=== PATIENT | male | born 1965 | race Caucasian/White ===

== ENCOUNTER → 2016-11-11 | Outpatient (CLI) | payer OTHER ==
[~2016-11-11] MED LIST: FOLIC ACID1 MG PO; HYDROCODONE BIT1 T11 PO; IBU800 M1 PO; LIBRIUM25 MG PO; MULTIVITAMIN1 CTB PO; OXYCODONE AND A1 TAB PO; PRILOSEC OTC20 MG PO; TRAMADOL HCL50 MG PO; TYLENOL325 M1 PO; VITAMIN B6500 MG PO
== END | disposition home or self-care (01) ==
LOC: ORTHO 04:03
DX: M79.642 Pain in left hand (principal); S62.307D Unspecified fracture of fifth metacarpal bone, left hand, subsequent encounter for fracture with routine healing; X58.XXXD Exposure to other specified factors, subsequent encounter

== ENCOUNTER 2016-12-05 01:01 | Emergency (ER) | payer OTHER ==
[~2016-12-05] VITALS: Ht 182.8 cm; Wt 90.7 kg
[2016-12-05 01:24] LABS: BILIRUBIN NEGATIVE (NEGATIVE); BLOOD TRACE-INTACT (NEGATIVE); CLARITY CLEAR (CLEAR); COLOR YELLOW (YELLOW); GLUCOSE NEGATIVE (NEGATIVE); KETONE NEGATIVE (NEGATIVE); LEUKO ESTERASE NEGATIVE (NEGATIVE); NITRITE NEGATIVE (NEGATIVE); SPECIFIC GRAVITY <= 1.005 (1.005-1.030); UROBILINOGEN 0.2 E.U./dl (0.2-1.0)
[2016-12-05 01:36] LABS: URINE AMPHETAMINES < 1000 (1000ng/ml); URINE BARBITURATES < 200 (200ng/ml); URINE BENZODIAZEPINES > 200 (200ng/ml); URINE CANNABINOIDS (THC) < 50 (50ng/ml); URINE COCAINE < 300 (300ng/ml); URINE METHADONE < 300 (300ng/ml); URINE OPIATES < 300 (300ng/ml); URINE PHENCYCLIDINE < 25 (25ng/ml)
[2016-12-05 01:40] LABS: RBC 0-2 rbc/hpf (0-2)
[2016-12-05] MEDS ORDERED: NORCO 10-325 T1 EACH PO (02:26)
== END 2016-12-05 03:31 | disposition home or self-care (01) ==
LOC: ED 01:01
PROVIDERS: Emergency Medicine
DX: S22.42XA Multiple fractures of ribs, left side, initial encounter for closed fracture (principal); R51 Headache; F17.200 Nicotine dependence, unspecified, uncomplicated; Z79.899 Other long term (current) drug therapy; W01.0XXA Fall on same level from slipping, tripping and stumbling without subsequent striking against object, initial encounter; Y93.89 Activity, other specified; Y92.89 Other specified places as the place of occurrence of the external cause; Y99.8 Other external cause status

== ENCOUNTER → 2017-02-11 | Outpatient (CLI) | payer OTHER ==
[~2017-02-11] MED LIST changes: +NORCO 10-325 T1 EACH PO
[2017-02-11 11:58] LABS: BASO % 0.3 % (0.0-1.0); BILIRUBIN NEGATIVE (NEGATIVE); BLOOD NEGATIVE (NEGATIVE); CLARITY CLEAR (CLEAR); COLOR YELLOW (YELLOW); EOS # 0.1 10*3/uL (0.0-0.4); EOS % 0.6 % (1.0-4.0); GLUCOSE NEGATIVE (NEGATIVE); HEMATOCRIT 44.9 % (42.0-52.0); HEMOGLOBIN 15.4 g/dl (14.0-18.0); KETONE NEGATIVE (NEGATIVE); LEUKO ESTERASE NEGATIVE (NEGATIVE); LYMPH # 2.4 10*3/uL (1.3-4.4); MEAN CELL VOLUME 97.8 fl (80.0-94.0); MEAN CORPUSCULAR HGB 33.6 pg (27.0-31.0); MEAN CORPUSCULAR HGB CONC 34.3 g/dl (33.0-37.0); MEAN PLATELET VOLUME 10.2 fl (9.6-12.3); MONO # 0.8 10*3/uL (0.1-1.0); MONO % 8.4 % (3.0-9.0); NEUT # 5.7 10*3/uL (2.3-7.9); NEUT % 63.4 % (47.0-73.0); NITRITE NEGATIVE (NEGATIVE); PH 5.5 (5.0-9.0); PLATELET COUNT AUTOMATED 149 10*3/uL (130-400); RED BLOOD COUNT 4.59 10*6/uL (4.50-5.90); RED CELL DISTRI WIDTH 14.6 % (0-14.5); SPECIFIC GRAVITY <= 1.005 (1.005-1.030); UROBILINOGEN 0.2 E.U./dl (0.2-1.0)
[2017-02-11 12:06] LABS: RBC 0-2 rbc/hpf (0-2)
[2017-02-11 12:23] LABS: BUN 5 mg/dl (7-24); CHLORIDE 103 mmol/L (98-107); CREATININE 0.85 mg/dL (0.70-1.30); POTASSIUM 4.6 mmol/L (3.5-5.1); SODIUM 138 mmol/L (136-145)
== END | disposition home or self-care (01) ==
LOC: LAB 09:48
PROVIDERS: Orthopaedic Surgery
DX: Z01.818 Encounter for other preprocedural examination (principal); M72.0 Palmar fascial fibromatosis [Dupuytren]; Z87.891 Personal history of nicotine dependence

== ENCOUNTER → 2017-02-18 | Day surgery (SDC) | payer OTHER ==
[2017-02-11 11:11] VITALS: BP 135/71
[~2017-02-18] VITALS: Ht 182.8 cm; Wt 89.8 kg
[~2017-02-18] MED LIST changes: +OMEPRAZOLE D/R20 MG PO; +Percocet 325 MG1 TAB PO; +VITAMIN B-1100 M1 PO; +VITAMIN B-650 M1 PO
--- NOTE | ~2017-02-18 | O ---
[place], [place] OPERATIVE NOTE NAME: ZACHARY PENALOZA [facility] #: [id number] UNIT #: [id number] ROOM: DOCTOR: SHRUTHI PIERSON DO BIRTHDATE: [birth year] DOS: 02/18/2017 PREOPERATIVE DIAGNOSIS: Left hand Dupuytren's contractures. POSTOPERATIVE DIAGNOSIS: Left hand Dupuytren's contractures of the small, ring, and middle fingers. OPERATIVE PROCEDURE: Left hand and small, ring, and middle fingers release and excision of Dupuytren's contractures. SURGEON: Shruthi Pierson DO. FIRST ASSISTANTS: Mile and Rishi. ANESTHESIA: Jolley, ASSISTANT PROGRAM MANAGER; General with endotracheal intubation. INDICATIONS: The patient is a 51-year-old male who has progressive contractures of the left third, fourth and fifth digits of the hand with inability to extend these digits consistent with Dupuytren's contractures. The risks and benefits of the procedure were explained to the patient preoperatively. Preoperative labs and x-rays were obtained. The patient and I discussed preoperatively that he was a heavy smoker and I encouraged him to decrease his smoking prior to the procedure. He has assured me that he has decreased smoking to 1-2 cigarettes a day. DESCRIPTION OF PROCEDURE: The left hand was marked in the holding area. The patient was brought to the operative suite. He was placed supine on the operative table. A general anesthetic with endotracheal intubation was performed. The patient received an antibiotic preoperatively. Timeout was performed. The left upper extremity was prepped and draped in the usual orthopedic manner. The incision was marked with a modified Aravind incision from the level of the PIP joint of the small and ring finger to the proximal palmar crease. The extremity was exsanguinated. The tourniquet was inflated to 250 mmHg. Using loupe magnification, the incisions were made sharply with a scalpel. The skin flaps were kept at a full thickness and the incisions were progressed down to the flexor tendons' sheaths. Meticulous dissection was performed to protect the neurovascular bundles as the Dupuytren's cords and nodules were released and excised. Each digit was brought out to full extension and then return to full flexion without evidence of limitations. It was noted that the middle finger continued to have a flexion contracture at the PIP and MCP joints. The incision was gently retracted in a radial direction. Again, under loupe magnification, the neurovascular bundles were protected and the remaining cords and nodules were released and excised for the middle finger. The middle finger was brought into full extension and full flexion without limitations. The incisions were copiously irrigated with normal saline. The skin edges were brought together in a lengthened position and the corners were sutured with a 4-0 Prolene. When this was completed, the tourniquet was released. [place], [place] OPERATIVE NOTE NAME: ZACHARY PENALOZA UNIT #: [id number] ROOM: DOCTOR: SHRUTHI PIERSON DO BIRTHDATE: [birth year] Active bleeding was controlled with pressure and electrocautery. Closure was completed with the fingers in full extension. There were noted to remain 2 areas less than 1 cm each in the palmar region, which were left open for granulation. The area was injected with Marcaine 0.25% plain. The incision was covered with Adaptic and Neosporin. A bulky dry sterile dressing was applied with fluffs and cast padding. A volar splint was applied from the mid forearm to the fingertips holding the digits in full extension. The fingertips were noted to be pink and have good capillary refill. The anesthetic was reversed. The patient was extubated and taken to the recovery room in satisfactory condition. Sponge and needle count correct. ESTIMATED BLOOD LOSS: 25 mL. SPECIMENS: Cords and palmar fascia were sent to the lab for further study. DRAINS: None. PACKING: None. COMPLICATIONS: None. FINDINGS: Dupuytren's contractures with cords and nodules for the left small, ring, and middle fingers and palm. PREOPERATIVE ANTIBIOTIC: Ancef 2 grams IV piggyback. SHRUTHI PIERSON DO CM:OPRECORD:OPERATIVE NOTE [id number] SHRUTHI PIERSON DO 03/15/17 1046 interface
[2017-02-18 07:45] VITALS: BP 146/77
[2017-02-18 13:02] VITALS: BP 153/81
[2017-02-18 13:17] VITALS: BP 149/80
[2017-02-18 13:32] VITALS: BP 127/74
[2017-02-18 13:47] VITALS: BP 132/74
[2017-02-18 14:02] VITALS: BP 138/79
== END | disposition home or self-care (01) ==
LOC: SDC 02-11 11:00
DX: M72.0 Palmar fascial fibromatosis [Dupuytren] (principal); F17.210 Nicotine dependence, cigarettes, uncomplicated; Z79.899 Other long term (current) drug therapy; Z98.890 Other specified postprocedural states

== ENCOUNTER 2017-03-06 16:57 | Emergency (ER) | payer OTHER ==
[~2017-03-06] VITALS: Wt 90.7 kg
== END 2017-03-06 18:06 | disposition home or self-care (01) ==
LOC: ED 16:57
DX: Z48.01 Encounter for change or removal of surgical wound dressing (principal); M79.642 Pain in left hand; F17.200 Nicotine dependence, unspecified, uncomplicated; Z98.890 Other specified postprocedural states; Z90.89 Acquired absence of other organs; Z79.899 Other long term (current) drug therapy

== ENCOUNTER 2017-04-13 12:07 | Emergency (ER) | payer OTHER ==
[~2017-04-13] VITALS: Ht 182.8 cm; Wt 90.7 kg
== END 2017-04-13 12:29 | disposition left against medical advice (07) ==
LOC: ED 12:07
DX: Z53.21 Procedure and treatment not carried out due to patient leaving prior to being seen by health care provider (principal); F17.200 Nicotine dependence, unspecified, uncomplicated; F10.10 Alcohol abuse, uncomplicated; Z79.899 Other long term (current) drug therapy

== ENCOUNTER → 2017-05-03 | Outpatient (CLI) | payer OTHER | END | disposition home or self-care (01) | LOC: ORTHO 02:06 | DX: R68.3 Clubbing of fingers (principal) ==

== ENCOUNTER 2017-05-25 15:04 | Emergency (ER) | payer OTHER | END 2017-05-25 15:36 | disposition home or self-care (01) | LOC: ED 15:04 | DX: L98.8 Other specified disorders of the skin and subcutaneous tissue (principal); F17.200 Nicotine dependence, unspecified, uncomplicated ==

== ENCOUNTER 2017-08-13 14:33 | Emergency (ER) | payer OTHER ==
[~2017-08-13] VITALS: Wt 86.2 kg
[2017-08-13] MEDS ORDERED: CIPRO500 MG PO (14:43)
== END 2017-08-13 15:44 | disposition home or self-care (01) ==
LOC: ED 14:33
DX: S91.331A Puncture wound without foreign body, right foot, initial encounter (principal); Z23 Encounter for immunization; Z98.890 Other specified postprocedural states; Z90.89 Acquired absence of other organs; W22.09XA Striking against other stationary object, initial encounter; Y93.89 Activity, other specified; Y92.099 Unspecified place in other non-institutional residence as the place of occurrence of the external cause; Y99.9 Unspecified external cause status

== ENCOUNTER 2017-09-24 19:39 | Emergency (ER) | payer OTHER ==
[~2017-09-24] VITALS: Ht 182.8 cm; Wt 99.8 kg
[~2017-09-24 19:39] MED LIST changes: +CIPRO500 MG PO
[2017-09-24] MEDS ORDERED: CHLORZOXAZONE500 M2 PO (19:56)
[2017-09-24] MEDS ORDERED: NAPROSYN500 MG PO (19:56)
== END 2017-09-24 21:10 | disposition home or self-care (01) ==
LOC: ED 19:39
DX: M54.5 Low back pain (principal); R03.0 Elevated blood-pressure reading, without diagnosis of hypertension

== ENCOUNTER 2018-06-04 16:37 | Emergency (ER) | payer OTHER ==
[~2018-06-04] VITALS: Ht 182.8 cm; Wt 90.7 kg
[~2018-06-04 16:37] MED LIST changes: +CHLORZOXAZONE500 M2 PO; +NAPROSYN500 MG PO
[2018-06-04] MEDS ORDERED: ZOFRAN4 MG PO (16:54)
[2018-06-04] MEDS ORDERED: AUGMENTIN 875875 MG PO (16:54)
[2018-06-04] MEDS ORDERED: NAPROSYN500 MG PO (16:54)
== END 2018-06-04 17:30 | disposition home or self-care (01) ==
LOC: ED 16:37
DX: S61.432A Puncture wound without foreign body of left hand, initial encounter (principal); R03.0 Elevated blood-pressure reading, without diagnosis of hypertension; Z23 Encounter for immunization; Z79.899 Other long term (current) drug therapy; Y08.89XA Assault by other specified means, initial encounter; Y93.89 Activity, other specified; Y92.098 Other place in other non-institutional residence as the place of occurrence of the external cause; Y99.8 Other external cause status

== ENCOUNTER → 2018-12-09 | Outpatient (CLI) | payer OTHER ==
[~2018-12-09] MED LIST changes: +AUGMENTIN 875875 MG PO; +ZOFRAN4 MG PO
== END | disposition home or self-care (01) ==
LOC: RESCLI 01:11
DX: S82.891S Other fracture of right lower leg, sequela (principal); S82.892S Other fracture of left lower leg, sequela; M79.643 Pain in unspecified hand; M25.511 Pain in right shoulder; M54.2 Cervicalgia; F10.10 Alcohol abuse, uncomplicated; M54.5 Low back pain; Z79.899 Other long term (current) drug therapy; X58.XXXS Exposure to other specified factors, sequela

== ENCOUNTER 2019-07-19 19:07 | Emergency (ER) | payer OTHER | END 2019-07-19 19:50 | disposition left against medical advice (07) | LOC: ED 19:07 | DX: R10.9 Unspecified abdominal pain (principal); F17.200 Nicotine dependence, unspecified, uncomplicated; Z53.21 Procedure and treatment not carried out due to patient leaving prior to being seen by health care provider ==

== ENCOUNTER 2019-08-11 19:50 | Emergency (ER) | payer OTHER ==
[~2019-08-11] VITALS: Ht 185.4 cm; Wt 99.8 kg
[2019-08-11 21:20] LABS: BASO % 0.2 % (0.0-1.0); EOS # 0.3 10*3/uL (0.0-0.4); EOS % 3.3 % (1.0-4.0); HEMATOCRIT 42.7 % (42.0-52.0); LYMPH # 3.6 10*3/uL (1.3-4.4); LYMPH % 43.1 % (27.0-41.0); MEAN CELL VOLUME 98.6 fl (80.0-94.0); MEAN CORPUSCULAR HGB 34.4 pg (27.0-31.0); MEAN CORPUSCULAR HGB CONC 34.9 g/dl (33.0-37.0); MEAN PLATELET VOLUME 9.8 fl (9.6-12.3); MONO # 0.9 10*3/uL (0.1-1.0); MONO % 10.4 % (3.0-9.0); NEUT # 3.6 10*3/uL (2.3-7.9); NEUT % 42.5 % (47.0-73.0); PLATELET COUNT AUTOMATED 178 10*3/uL (130-400); RED BLOOD COUNT 4.33 10*6/uL (4.50-5.90); RED CELL DISTRI WIDTH 14.5 % (0-14.5); WHITE BLOOD COUNT 8.4 10*3/uL (4.8-10.8)
[2019-08-11 21:30] LABS: ACT PARTIAL THROMBO TIME 29.1 SECONDS (20.0-32.1); INTERNATIONAL NORM RATIO 0.9 (2.0-3.5)
[2019-08-11 21:36] LABS: ALBUMIN 4.1 gm/dl (3.1-4.5); ALKALINE PHOSPHATASE 55 U/L (45-117); BUN 4 mg/dl (7-24); CHLORIDE 103 mmol/L (98-107); CREATININE 0.73 mg/dL (0.70-1.30); LIPASE 256 U/L (73-393); POTASSIUM 3.7 mmol/L (3.5-5.1); SGOT/AST 63 IU/L (3-35); SGPT/ALT 53 U/L (12-78); SODIUM 134 mmol/L (136-145); TOTAL PROTEIN 8.1 gm/dL (6.4-8.2)
[2019-08-11 21:39] LABS: ACETAMINOPHEN (TYLENOL) < 5.0 ug/ml (10-30)
[2019-08-11 21:59] LABS: BILIRUBIN NEGATIVE (NEGATIVE); BLOOD NEGATIVE (NEGATIVE); CLARITY CLEAR (CLEAR); COLOR YELLOW (YELLOW); GLUCOSE NEGATIVE (NEGATIVE); KETONE NEGATIVE (NEGATIVE); SPECIFIC GRAVITY 1.005 (1.005-1.030); UROBILINOGEN 0.2 E.U./dl (0.2-1.0)
[2019-08-11 22:00] LABS: LEUKO ESTERASE NEGATIVE (NEGATIVE); NITRITE NEGATIVE (NEGATIVE)
[2019-08-11 22:03] LABS: URINE AMPHETAMINES < 1000 (1000ng/ml); URINE BARBITURATES < 200 (200ng/ml); URINE BENZODIAZEPINES < 200 (200ng/ml); URINE CANNABINOIDS (THC) < 50 (50ng/ml); URINE COCAINE < 300 (300ng/ml); URINE METHADONE < 300 (300ng/ml); URINE OPIATES < 300 (300ng/ml)
[2019-08-11 22:07] LABS: URINE PHENCYCLIDINE < 25 (25ng/ml)
== END 2019-08-11 23:10 | disposition left against medical advice (07) ==
LOC: ED 19:50
PROVIDERS: Emergency Medicine Emergency Medical Services
DX: R14.0 Abdominal distension (gaseous) (principal); F10.10 Alcohol abuse, uncomplicated; F17.200 Nicotine dependence, unspecified, uncomplicated; K21.9 Gastro-esophageal reflux disease without esophagitis

== ENCOUNTER 2019-09-29 13:41 | Emergency (ER) | payer OTHER ==
[~2019-09-29] VITALS: Ht 182.8 cm; Wt 90.7 kg
[2019-09-29] MEDS ORDERED: CEPHALEXIN500 M1 PO (15:10)
[2019-09-29] MEDS ORDERED: ANTIBIOTIC28.4 GM T (15:10)
== END 2019-09-29 17:26 | disposition home or self-care (01) ==
LOC: ED 13:41
DX: S81.811A Laceration without foreign body, right lower leg, initial encounter (principal); F17.200 Nicotine dependence, unspecified, uncomplicated; X58.XXXA Exposure to other specified factors, initial encounter; Y93.89 Activity, other specified; Y92.89 Other specified places as the place of occurrence of the external cause; Y99.8 Other external cause status

== ENCOUNTER 2019-10-01 17:48 | Emergency (ER) | payer OTHER ==
[~2019-10-01] VITALS: Wt 83.9 kg
[~2019-10-01 17:48] MED LIST changes: +ANTIBIOTIC28.4 GM T; +CEPHALEXIN500 M1 PO
== END 2019-10-01 18:35 | disposition home or self-care (01) ==
LOC: ED 17:48
DX: S51.811A Laceration without foreign body of right forearm, initial encounter (principal); S81.811A Laceration without foreign body, right lower leg, initial encounter; K21.9 Gastro-esophageal reflux disease without esophagitis; F17.210 Nicotine dependence, cigarettes, uncomplicated; W25.XXXA Contact with sharp glass, initial encounter; Y93.89 Activity, other specified; Y92.89 Other specified places as the place of occurrence of the external cause; Y99.8 Other external cause status

== ENCOUNTER 2020-11-08 20:44 | Emergency (ER) | payer OTHER ==
[~2020-11-08] VITALS: Ht 182.8 cm
[2020-11-08] MEDS ORDERED: EPIPEN 2-P0.3 MG/0.3 IJ (22:39)
[2020-11-08] MEDS ORDERED: PREDNISONE20 M1 PO ×2 (22:48)
== END 2020-11-09 00:53 | disposition home or self-care (01) ==
LOC: ED 20:44
DX: T78.3XXA Angioneurotic edema, initial encounter (principal); T78.49XA Other allergy, initial encounter; F17.210 Nicotine dependence, cigarettes, uncomplicated; Z79.2 Long term (current) use of antibiotics; Z98.890 Other specified postprocedural states; Z90.89 Acquired absence of other organs; X58.XXXA Exposure to other specified factors, initial encounter

== ENCOUNTER 2020-11-22 20:41 | Emergency (ER) | payer OTHER ==
[~2020-11-22] VITALS: Ht 182.8 cm; Wt 83.9 kg
[~2020-11-22 20:41] MED LIST changes: +EPIPEN 2-P0.3 MG/0.3 IJ; +PREDNISONE20 M1 PO
== END 2020-11-22 22:51 | disposition home or self-care (01) ==
LOC: ED 20:41
DX: S81.021A Laceration with foreign body, right knee, initial encounter (principal); F17.210 Nicotine dependence, cigarettes, uncomplicated; Z91.030 Bee allergy status; Z79.899 Other long term (current) drug therapy; Z98.890 Other specified postprocedural states; Z90.89 Acquired absence of other organs; W25.XXXA Contact with sharp glass, initial encounter; Y93.89 Activity, other specified; Y92.89 Other specified places as the place of occurrence of the external cause; Y99.8 Other external cause status

== ENCOUNTER 2020-11-23 20:33 | Emergency (ER) | payer OTHER | END 2020-11-23 21:00 | disposition left against medical advice (07) | LOC: ED 20:33 | DX: Z48.01 Encounter for change or removal of surgical wound dressing (principal); Z53.21 Procedure and treatment not carried out due to patient leaving prior to being seen by health care provider ==

== ENCOUNTER 2021-06-30 17:10 | Emergency (ER) | payer OTHER ==
[~2021-06-30] VITALS: Ht 182.8 cm; Wt 95.3 kg
[2021-06-30 18:03] LABS: BASO % 0.4 % (0.0-1.0); EOS # 0.1 10*3/uL (0.0-0.4); EOS % 1.7 % (1.0-4.0); HEMATOCRIT 41.8 % (42.0-52.0); LYMPH # 3.7 10*3/uL (1.3-4.4); LYMPH % 51.8 % (27.0-41.0); MEAN CELL VOLUME 95.4 fl (80.0-94.0); MEAN CORPUSCULAR HGB 33.1 pg (27.0-31.0); MEAN CORPUSCULAR HGB CONC 34.7 g/dl (33.0-37.0); MEAN PLATELET VOLUME 9.4 fl (9.6-12.3); MONO # 0.8 10*3/uL (0.1-1.0); MONO % 11.4 % (3.0-9.0); NEUT # 2.5 10*3/uL (2.3-7.9); NEUT % 34.4 % (47.0-73.0); PLATELET COUNT AUTOMATED 170 10*3/uL (130-400); RED BLOOD COUNT 4.38 10*6/uL (4.50-5.90); RED CELL DISTRI WIDTH 13.3 % (0-14.5); WHITE BLOOD COUNT 7.1 10*3/uL (4.8-10.8)
[2021-06-30 18:17] LABS: ALKALINE PHOSPHATASE 70 U/L (45-117); BUN 5 mg/dl (7-24); CHLORIDE 100 mmol/L (98-107); POTASSIUM 4.3 mmol/L (3.5-5.1); SGOT/AST 43 IU/L (3-35); SGPT/ALT 35 U/L (12-78); SODIUM 135 mmol/L (136-145); TOTAL PROTEIN 8.6 gm/dL (6.4-8.2)
== END 2021-06-30 19:07 | disposition left against medical advice (07) ==
LOC: ED 17:10
PROVIDERS: Physician Assistant
DX: R05.9 Cough, unspecified (principal); R09.81 Nasal congestion; R09.89 Other specified symptoms and signs involving the circulatory and respiratory systems; Z91.030 Bee allergy status; Z87.891 Personal history of nicotine dependence; Z90.89 Acquired absence of other organs; Z98.890 Other specified postprocedural states

== ENCOUNTER → 2021-08-19 | Outpatient (CLI) | payer OTHER | END | disposition home or self-care (01) | LOC: RAD 09:46 | PROVIDERS: ATTEND Internal Medicine | DX: J18.9 Pneumonia, unspecified organism (principal) ==

== ENCOUNTER → 2021-10-16 | Outpatient (CLI) | payer OTHER ==
[2021-10-16 13:53] LABS: BASO % 0.5 % (0.0-1.0); EOS # 0.1 10*3/uL (0.0-0.4); EOS % 1.2 % (1.0-4.0); HEMATOCRIT 40.3 % (42.0-52.0); LYMPH # 3.3 10*3/uL (1.3-4.4); LYMPH % 44.7 % (27.0-41.0); MEAN CELL VOLUME 95.5 fl (80.0-94.0); MEAN CORPUSCULAR HGB 33.9 pg (27.0-31.0); MEAN CORPUSCULAR HGB CONC 35.5 g/dl (33.0-37.0); MEAN PLATELET VOLUME 10.1 fl (9.6-12.3); MONO # 0.7 10*3/uL (0.1-1.0); NEUT # 3.2 10*3/uL (2.3-7.9); NEUT % 43.5 % (47.0-73.0); PLATELET COUNT AUTOMATED 194 10*3/uL (130-400); RED BLOOD COUNT 4.22 10*6/uL (4.50-5.90); RED CELL DISTRI WIDTH 13.7 % (0-14.5); WHITE BLOOD COUNT 7.3 10*3/uL (4.8-10.8)
[2021-10-16 14:10] LABS: ALKALINE PHOSPHATASE 88 U/L (45-117); BUN 4 mg/dl (7-24); CHLORIDE 104 mmol/L (98-107); CHOLESTEROL 115 mg/dL (<200); CREATININE 0.64 mg/dL (0.70-1.30); LDL CHOLESTEROL 28 mg/dL (9-159); POTASSIUM 3.7 mmol/L (3.5-5.1); SGOT/AST 88 IU/L (3-35); SGPT/ALT 75 U/L (12-78); SODIUM 134 mmol/L (136-145); TOTAL PROTEIN 7.9 gm/dL (6.4-8.2); TRIGLYCERIDES 36 mg/dl (<150)
[2021-10-16 14:11] LABS: FREE T4 0.73 ng/dl (0.76-1.46)
[2021-10-16 15:02] LABS: VITAMIN D, 25-HYDROXY 64.8 ng/mL (30-100)
== END | disposition home or self-care (01) ==
LOC: LAB 13:25
PROVIDERS: ATTEND Internal Medicine
DX: I10 Essential (primary) hypertension (principal)

== ENCOUNTER 2021-12-31 12:25 | Emergency (ER) | payer OTHER ==
[~2021-12-31] VITALS: Ht 182.8 cm; Wt 91.6 kg
[2022-01-01] MEDS ORDERED: KENALOG 0.1%80 GM T (10:56)
[2022-01-01] MEDS ORDERED: PREDNISONE5 MG PO (10:57)
[2022-01-01] MEDS ORDERED: TAB-A-VITE TA400 MCG PO (10:57)
[2022-01-01] MEDS ORDERED: FLONASE ALLERG9.9 ML NAS (10:58)
[2022-01-01] MEDS ORDERED: LISINOPRIL5 MG PO (10:59)
[2022-01-01] MEDS ORDERED: LORATADINE-D 11 EACH PO (10:59)
[2022-01-01] MEDS ORDERED: ATORVASTATIN CA20 M1 PO (10:59)
== END 2021-12-31 14:10 | disposition home or self-care (01) ==
LOC: ED 12:25
DX: S41.151A Open bite of right upper arm, initial encounter (principal); F17.210 Nicotine dependence, cigarettes, uncomplicated; Z91.030 Bee allergy status; Z79.899 Other long term (current) drug therapy; Z90.89 Acquired absence of other organs; Z98.890 Other specified postprocedural states; W55.51XA Bitten by raccoon, initial encounter; Y93.89 Activity, other specified; Y92.89 Other specified places as the place of occurrence of the external cause; Y99.8 Other external cause status

== ENCOUNTER 2022-01-03 13:32 | Emergency (ER) | payer OTHER ==
[~2022-01-03 13:32] MED LIST changes: +ATORVASTATIN CA20 M1 PO; +FLONASE ALLERG9.9 ML NAS; +KENALOG 0.1%80 GM T; +LISINOPRIL5 MG PO; +LORATADINE-D 11 EACH PO; +PREDNISONE5 MG PO; +TAB-A-VITE TA400 MCG PO
== END 2022-01-03 14:09 | disposition home or self-care (01) ==
LOC: ED 13:32
DX: Z23 Encounter for immunization (principal); Z91.030 Bee allergy status; Z79.899 Other long term (current) drug therapy; Z87.891 Personal history of nicotine dependence; Z90.89 Acquired absence of other organs; Z98.890 Other specified postprocedural states

== ENCOUNTER 2022-01-07 13:17 | Emergency (ER) | payer OTHER | END 2022-01-07 14:00 | disposition home or self-care (01) | LOC: ED 13:17 | DX: Z23 Encounter for immunization (principal); Z91.030 Bee allergy status; Z79.899 Other long term (current) drug therapy; Z98.890 Other specified postprocedural states; Z90.89 Acquired absence of other organs; F17.210 Nicotine dependence, cigarettes, uncomplicated ==

== ENCOUNTER 2022-01-14 12:47 | Emergency (ER) | payer OTHER ==
[~2022-01-14] VITALS: Ht 182.8 cm; Wt 91.6 kg
== END 2022-01-14 13:31 | disposition home or self-care (01) ==
LOC: ED 12:47
DX: Z23 Encounter for immunization (principal); Z79.899 Other long term (current) drug therapy; Z91.030 Bee allergy status

== ENCOUNTER → 2022-03-02 | Outpatient (CLI) | payer OTHER | END | disposition home or self-care (01) | LOC: US 12-02 08:30 | PROVIDERS: ATTEND Internal Medicine | DX: K70.10 Alcoholic hepatitis without ascites (principal) ==

== ENCOUNTER → 2022-03-23 | Day surgery (SDC) | payer OTHER ==
[~2022-03-23] VITALS: Ht 182.8 cm; Wt 90.7 kg
== END | disposition home or self-care (01) ==
LOC: SDC 01-01 12:30
PROVIDERS: ATTEND Surgery
DX: Z12.11 Encounter for screening for malignant neoplasm of colon (principal); K21.9 Gastro-esophageal reflux disease without esophagitis; Z53.8 Procedure and treatment not carried out for other reasons

== ENCOUNTER → 2022-04-17 | Outpatient (CLI) | payer OTHER ==
[2022-04-20 12:06] LABS: ALTERNARIA ALTERNATA, IGE 0.29 kU/L (Class 0/I); AMERICAN ELM, IGE 0.56 kU/L (Class II); ASPERGILLUS FUMIGATU, IGE 0.38 kU/L (Class I); BIRCH, COMMON SILVER IGE 0.71 kU/L (Class II); CLADOSPORIUM HERBARU, IGE <0.10 kU/L (Class 0); D FARINAE MITE 0.34 kU/L (Class I); D PTERONYSSINUS 0.66 kU/L (Class II); DOG DANDER, IGE 0.14 kU/L (Class 0/I); MAPLE LEAF SYCAMORE, IGE 0.75 kU/L (Class II); MAPLE/BOX ELDER, IGE 0.28 kU/L (Class 0/I); MOUSE URINE IGE 0.23 kU/L (Class 0/I); PENICILLIUM CHRYSOGENUM, IGE 0.35 kU/L (Class I); ROUGH PIGWEED, IGE 3.03 kU/L (Class III); SHEEP SORREL (DOCK), IGE 0.79 kU/L (Class II); SHORT RAGWEED, IGE 0.38 kU/L (Class I); TIMOTHY, IGE 0.25 kU/L (Class 0/I); WALNUT TREE, IGE 0.33 kU/L (Class I); WHITE ASH, IGE 0.24 kU/L (Class 0/I); WHITE MULBERRY, IGE 0.65 kU/L (Class II); WHITE OAK, IGE 0.28 kU/L (Class 0/I)
== END | disposition home or self-care (01) ==
LOC: LAB 01:53
PROVIDERS: ATTEND Internal Medicine
DX: J30.2 Other seasonal allergic rhinitis (principal)

== ENCOUNTER 2022-05-01 14:08 | Emergency (ER) | payer OTHER ==
[~2022-05-01] VITALS: Ht 182.8 cm; Wt 90.7 kg
[2022-05-01] MEDS ORDERED: TOBRAMYCIN 5 ML5 M1 OPH (14:46)
[2022-05-01] MEDS ORDERED: CLINDAMYCIN HC300 MG PO (23:06)
== END 2022-05-01 14:55 | disposition home or self-care (01) ==
LOC: ED 14:08
DX: S05.01XA Injury of conjunctiva and corneal abrasion without foreign body, right eye, initial encounter (principal); F17.210 Nicotine dependence, cigarettes, uncomplicated; Z91.030 Bee allergy status; Z79.899 Other long term (current) drug therapy; Z98.890 Other specified postprocedural states; Z90.89 Acquired absence of other organs; X58.XXXA Exposure to other specified factors, initial encounter; Y93.89 Activity, other specified; Y92.89 Other specified places as the place of occurrence of the external cause; Y99.8 Other external cause status

== ENCOUNTER 2022-05-01 22:25 | Emergency (ER) | payer OTHER ==
[~2022-05-01] VITALS: Ht 177.8 cm; Wt 108.9 kg
[~2022-05-01 22:25] MED LIST changes: +TOBRAMYCIN 5 ML5 M1 OPH
[2022-05-01] MEDS ORDERED: CLINDAMYCIN HC300 MG PO (23:06)
== END 2022-05-01 23:45 | disposition home or self-care (01) ==
LOC: ED 22:25
DX: S61.211A Laceration without foreign body of left index finger without damage to nail, initial encounter (principal); Z91.030 Bee allergy status; Z98.890 Other specified postprocedural states; Z90.89 Acquired absence of other organs; F10.10 Alcohol abuse, uncomplicated; F17.210 Nicotine dependence, cigarettes, uncomplicated; W26.8XXA Contact with other sharp object(s), not elsewhere classified, initial encounter; Y93.89 Activity, other specified; Y92.89 Other specified places as the place of occurrence of the external cause; Y99.8 Other external cause status

== ENCOUNTER → 2022-05-12 | Outpatient (CLI) | payer OTHER ==
[~2022-05-12] MED LIST changes: +CLINDAMYCIN HC300 MG PO
== END | disposition home or self-care (01) ==
LOC: US 05-07 07:30
PROVIDERS: ATTEND Internal Medicine
DX: M79.89 Other specified soft tissue disorders (principal)

== ENCOUNTER 2022-05-22 13:22 | Emergency (ER) | payer OTHER ==
[~2022-05-22] VITALS: Ht 182.8 cm; Wt 93.0 kg
[2022-05-22 14:46] LABS: ACT PARTIAL THROMBO TIME 30.8 SECONDS (20.0-32.1)
[2022-05-22 14:48] LABS: ALKALINE PHOSPHATASE 77 U/L (46-116); BASO % 0.3 % (0.0-1.0); BUN 5 mg/dl (9-23); CHLORIDE 101 mmol/L (98-107); EOS # 0.2 10*3/uL (0.0-0.4); EOS % 1.6 % (1.0-4.0); HEMATOCRIT 41.8 % (42.0-52.0); LIPASE 256 U/L (12-53); LYMPH # 2.7 10*3/uL (1.3-4.4); LYMPH % 28.8 % (27.0-41.0); MEAN CELL VOLUME 96.5 fl (80.0-94.0); MEAN CORPUSCULAR HGB 34.2 pg (27.0-31.0); MEAN CORPUSCULAR HGB CONC 35.4 g/dl (33.0-37.0); MEAN PLATELET VOLUME 10.1 fl (9.6-12.3); MONO # 0.9 10*3/uL (0.1-1.0); MONO % 9.3 % (3.0-9.0); NEUT # 5.6 10*3/uL (2.3-7.9); NEUT % 59.9 % (47.0-73.0); PLATELET COUNT AUTOMATED 170 10*3/uL (130-400); POTASSIUM 3.9 mmol/L (3.4-5.1); RED BLOOD COUNT 4.33 10*6/uL (4.50-5.90); RED CELL DISTRI WIDTH 13.6 % (0-14.5); SGPT/ALT 29 U/L (10-49); TOTAL PROTEIN 7.7 gm/dL (6.0-8.0); WHITE BLOOD COUNT 9.3 10*3/uL (4.8-10.8)
[2022-05-22] MEDS ORDERED: MUCINEX1200 M1 PO (20:03)
[2022-05-23] MEDS ORDERED: MELATONIN10 M4 PO (20:04)
== END 2022-05-22 17:04 | disposition left against medical advice (07) ==
LOC: ED 13:22
PROVIDERS: Emergency Medicine
DX: K85.90 Acute pancreatitis without necrosis or infection, unspecified (principal); Z91.030 Bee allergy status; Z88.0 Allergy status to penicillin; Z98.890 Other specified postprocedural states; Z90.89 Acquired absence of other organs; F10.10 Alcohol abuse, uncomplicated; F17.210 Nicotine dependence, cigarettes, uncomplicated

== ENCOUNTER 2022-05-22 19:48 | Inpatient (IN) | payer OTHER ==
[~2022-05-22] VITALS: Ht 182.8 cm; Wt 89.1 kg
[2022-05-22 20:01] VITALS: BP 131/75
[2022-05-22] MEDS ORDERED: MUCINEX1200 M1 PO (20:03)
[2022-05-22 21:30] VITALS: BP 125/66
[2022-05-23] VITALS: BP 124/81; BP 136/65
[2022-05-23 06:13] LABS: BASO % 0.4 % (0.0-1.0); EOS # 0.3 10*3/uL (0.0-0.4); EOS % 4.3 % (1.0-4.0); HEMATOCRIT 40.5 % (42.0-52.0); LYMPH # 1.6 10*3/uL (1.3-4.4); MEAN CELL VOLUME 97.1 fl (80.0-94.0); MEAN CORPUSCULAR HGB 33.6 pg (27.0-31.0); MEAN CORPUSCULAR HGB CONC 34.6 g/dl (33.0-37.0); MEAN PLATELET VOLUME 10.5 fl (9.6-12.3); MONO # 0.8 10*3/uL (0.1-1.0); MONO % 11.9 % (3.0-9.0); NEUT # 4.3 10*3/uL (2.3-7.9); NEUT % 61.1 % (47.0-73.0); PLATELET COUNT AUTOMATED 152 10*3/uL (130-400); RED BLOOD COUNT 4.17 10*6/uL (4.50-5.90); RED CELL DISTRI WIDTH 13.8 % (0-14.5)
[2022-05-23 07:20] LABS: CHLORIDE 103 mmol/L (98-107); LIPASE 126 U/L (12-53); POTASSIUM 3.8 mmol/L (3.4-5.1)
[2022-05-23 07:29] LABS: BUN < 5 mg/dl (9-23)
[2022-05-23 12:00] VITALS: BP 125/61
[2022-05-23 16:00] VITALS: BP 149/73
[2022-05-23 20:00] VITALS: BP 149/67
[2022-05-23] MEDS ORDERED: MELATONIN10 M4 PO (20:04)
[2022-05-24] VITALS: BP 113/51
[2022-05-24 07:49] LABS: ALKALINE PHOSPHATASE 72 U/L (46-116); BUN 5 mg/dl (9-23); CHLORIDE 100 mmol/L (98-107); LIPASE 418 U/L (12-53); POTASSIUM 3.9 mmol/L (3.4-5.1); SGPT/ALT 23 U/L (10-49); TOTAL PROTEIN 6.9 gm/dL (6.0-8.0)
[2022-05-24 08:00] VITALS: BP 128/72
[2022-05-24 12:00] VITALS: BP 134/75
[2022-05-24 20:00] VITALS: BP 135/65; BP 164/92
[2022-05-25] VITALS: BP 133/65
[2022-05-25 08:00] VITALS: BP 138/88
[2022-05-25 12:00] VITALS: BP 129/74
[2022-05-25 13:23] LABS: BASO % 0.3 % (0.0-1.0); EOS # 0.2 10*3/uL (0.0-0.4); EOS % 2.5 % (1.0-4.0); HEMATOCRIT 40.4 % (42.0-52.0); LYMPH # 2.1 10*3/uL (1.3-4.4); LYMPH % 27.3 % (27.0-41.0); MEAN CELL VOLUME 95.5 fl (80.0-94.0); MEAN CORPUSCULAR HGB 33.3 pg (27.0-31.0); MEAN CORPUSCULAR HGB CONC 34.9 g/dl (33.0-37.0); MEAN PLATELET VOLUME 10.5 fl (9.6-12.3); MONO # 0.7 10*3/uL (0.1-1.0); MONO % 9.2 % (3.0-9.0); NEUT # 4.6 10*3/uL (2.3-7.9); NEUT % 60.4 % (47.0-73.0); PLATELET COUNT AUTOMATED 150 10*3/uL (130-400); RED BLOOD COUNT 4.23 10*6/uL (4.50-5.90); RED CELL DISTRI WIDTH 13.3 % (0-14.5); WHITE BLOOD COUNT 7.7 10*3/uL (4.8-10.8)
[2022-05-25 13:40] LABS: ALKALINE PHOSPHATASE 76 U/L (46-116); BUN 8 mg/dl (9-23); CHLORIDE 101 mmol/L (98-107); LIPASE 188 U/L (12-53); POTASSIUM 3.9 mmol/L (3.4-5.1); SGPT/ALT 20 U/L (10-49); TOTAL PROTEIN 7.3 gm/dL (6.0-8.0)
[2022-05-25 16:00] VITALS: BP 130/72
[2022-05-25 20:00] VITALS: BP 137/75
[2022-05-26] VITALS: BP 153/82
[2022-05-26 07:41] LABS: BASO % 0.3 % (0.0-1.0); EOS # 0.2 10*3/uL (0.0-0.4); EOS % 2.3 % (1.0-4.0); LYMPH # 1.7 10*3/uL (1.3-4.4); LYMPH % 24.9 % (27.0-41.0); MEAN CELL VOLUME 96.1 fl (80.0-94.0); MEAN CORPUSCULAR HGB 33.6 pg (27.0-31.0); MEAN PLATELET VOLUME 10.1 fl (9.6-12.3); MONO # 0.8 10*3/uL (0.1-1.0); MONO % 11.7 % (3.0-9.0); NEUT # 4.2 10*3/uL (2.3-7.9); NEUT % 60.7 % (47.0-73.0); PLATELET COUNT AUTOMATED 146 10*3/uL (130-400); RED BLOOD COUNT 4.37 10*6/uL (4.50-5.90); RED CELL DISTRI WIDTH 13.2 % (0-14.5)
[2022-05-26 07:53] LABS: BUN 7 mg/dl (9-23); CHLORIDE 99 mmol/L (98-107); POTASSIUM 3.7 mmol/L (3.4-5.1)
[2022-05-26 08:00] VITALS: BP 128/79
[2022-05-26 12:00] VITALS: BP 133/72
[2022-05-26 16:00] VITALS: BP 130/72
[2022-05-26 20:00] VITALS: BP 149/76
[2022-05-27] VITALS: BP 141/71
[2022-05-27 06:34] LABS: ALKALINE PHOSPHATASE 73 U/L (46-116); BUN 6 mg/dl (9-23); CHLORIDE 104 mmol/L (98-107); LIPASE 80 U/L (12-53); POTASSIUM 3.6 mmol/L (3.4-5.1); SGPT/ALT 18 U/L (10-49); TOTAL PROTEIN 7.2 gm/dL (6.0-8.0)
[2022-05-27 06:38] LABS: BASO % 0.5 % (0.0-1.0); EOS # 0.3 10*3/uL (0.0-0.4); EOS % 4.1 % (1.0-4.0); HEMATOCRIT 40.2 % (42.0-52.0); LYMPH # 1.7 10*3/uL (1.3-4.4); LYMPH % 26.4 % (27.0-41.0); MEAN CELL VOLUME 96.2 fl (80.0-94.0); MEAN CORPUSCULAR HGB 33.7 pg (27.0-31.0); MEAN CORPUSCULAR HGB CONC 35.1 g/dl (33.0-37.0); MEAN PLATELET VOLUME 10.8 fl (9.6-12.3); MONO # 0.9 10*3/uL (0.1-1.0); MONO % 13.1 % (3.0-9.0); NEUT # 3.7 10*3/uL (2.3-7.9); NEUT % 55.6 % (47.0-73.0); PLATELET COUNT AUTOMATED 165 10*3/uL (130-400); RED BLOOD COUNT 4.18 10*6/uL (4.50-5.90); RED CELL DISTRI WIDTH 13.2 % (0-14.5); WHITE BLOOD COUNT 6.6 10*3/uL (4.8-10.8)
[2022-05-27 08:00] VITALS: BP 141/77
[2022-05-27 12:00] VITALS: BP 129/82
[2022-05-27] MEDS ORDERED: NATURE'S BLEND F1 MG PO (12:30)
[2022-05-27] MEDS ORDERED: VITAMIN B-1100 M1 PO (12:30)
[2022-05-27] MEDS ORDERED: OMEPRAZOLE40 MG PO (12:30)
[2022-05-27 20:00] VITALS: BP 153/81
[2022-05-28] VITALS (9 sets, daily range): BP systolic 122–147; BP diastolic 54–99
[2022-05-28 08:38] LABS: ALKALINE PHOSPHATASE 76 U/L (46-116); LIPASE 37 U/L (12-53); SGPT/ALT 24 U/L (10-49)
[2022-05-29] VITALS: BP 122/57
[2022-05-29] MEDS ORDERED: Carafate1 GM PO (07:43)
[2022-05-29 08:00] VITALS: BP 151/71
== END 2022-05-29 15:47 | disposition home or self-care (01) | DRG 282 ==
LOC: ED 19:48 → EDHOLD 20:44 → 4E 20:44
PROVIDERS: Internal Medicine; ADMIT Internal Medicine; ATTEND Internal Medicine
PROC: 0DB78ZX Excision of Stomach, Pylorus, Via Natural or Artificial Opening Endoscopic, Diagnostic (ICD-10-PCS; principal; 2022-05-28)
DX: K85.20 Alcohol induced acute pancreatitis without necrosis or infection (principal); K29.00 Acute gastritis without bleeding; K21.9 Gastro-esophageal reflux disease without esophagitis; K70.0 Alcoholic fatty liver; F10.20 Alcohol dependence, uncomplicated; I10 Essential (primary) hypertension; E78.00 Pure hypercholesterolemia, unspecified; Y90.9 Presence of alcohol in blood, level not specified; Z91.030 Bee allergy status; Z88.0 Allergy status to penicillin; Z79.899 Other long term (current) drug therapy

== ENCOUNTER → 2022-06-04 | Outpatient (CLI) | payer OTHER ==
[~2022-06-04] MED LIST changes: +Carafate1 GM PO; +MELATONIN10 M4 PO; +MUCINEX1200 M1 PO; +NATURE'S BLEND F1 MG PO; +OMEPRAZOLE40 MG PO
== END | disposition home or self-care (01) ==
LOC: LAB 15:10
PROVIDERS: ATTEND Allergy & Immunology
DX: T63.441A Toxic effect of venom of bees, accidental (unintentional), initial encounter (principal); T63.451A Toxic effect of venom of hornets, accidental (unintentional), initial encounter; T63.461A Toxic effect of venom of wasps, accidental (unintentional), initial encounter; Y92.89 Other specified places as the place of occurrence of the external cause

== ENCOUNTER → 2022-07-09 | Outpatient (CLI) | payer OTHER | END | disposition home or self-care (01) | LOC: RAD 00:41 | PROVIDERS: ATTEND Internal Medicine | DX: M21.6X2 Other acquired deformities of left foot (principal) ==

== ENCOUNTER → 2022-08-04 | Outpatient (CLI) | payer OTHER | END | disposition home or self-care (01) | LOC: RAD/SH 08:45 | PROVIDERS: ATTEND Internal Medicine | DX: R13.10 Dysphagia, unspecified (principal) ==

== ENCOUNTER → 2022-09-29 | Outpatient (CLI) | payer OTHER | END | disposition home or self-care (01) | LOC: RAD 01:16 | PROVIDERS: ATTEND Internal Medicine | DX: J18.9 Pneumonia, unspecified organism (principal) ==

== ENCOUNTER → 2023-06-23 | Outpatient (CLI) | payer OTHER | END | disposition home or self-care (01) | LOC: RAD 12:07 | PROVIDERS: ATTEND Internal Medicine | DX: M25.561 Pain in right knee (principal) ==

== ENCOUNTER 2023-09-05 08:04 | Emergency (ER) | payer OTHER ==
[~2023-09-05] VITALS: Ht 182.8 cm; Wt 79.8 kg
[2023-09-05] MEDS ORDERED: PREDNISONE50 MG PO (08:36)
[2023-09-05] MEDS ORDERED: predniSONE 20 MG TAB PO ONE (08:40)
== END 2023-09-05 08:40 | disposition home or self-care (01) ==
LOC: ED 08:04
DX: S40.862A Insect bite (nonvenomous) of left upper arm, initial encounter (principal); F10.10 Alcohol abuse, uncomplicated; F17.210 Nicotine dependence, cigarettes, uncomplicated; Z91.030 Bee allergy status; Z88.0 Allergy status to penicillin; Z98.890 Other specified postprocedural states; Z90.89 Acquired absence of other organs; W57.XXXA Bitten or stung by nonvenomous insect and other nonvenomous arthropods, initial encounter; Y93.89 Activity, other specified; Y92.89 Other specified places as the place of occurrence of the external cause; Y99.8 Other external cause status

== ENCOUNTER → 2023-11-05 | Outpatient (CLI) | payer OTHER ==
[~2023-11-05] MED LIST changes: +PREDNISONE50 MG PO
== END | disposition home or self-care (01) ==
LOC: RAD 01:43
PROVIDERS: ATTEND Internal Medicine
DX: M47.814 Spondylosis without myelopathy or radiculopathy, thoracic region (principal); M25.78 Osteophyte, vertebrae

== ENCOUNTER → 2023-12-22 | Outpatient (CLI) | payer OTHER ==
[2023-12-22 08:07] LABS: BASO % 0.3 % (0.0-1.0); EOS # 0.1 10*3/uL (0.0-0.4); EOS % 1.1 % (1.0-4.0); HEMATOCRIT 39.5 % (42.0-52.0); LYMPH # 3.7 10*3/uL (1.3-4.4); LYMPH % 34.9 % (27.0-41.0); MEAN CORPUSCULAR HGB 30.8 pg (27.0-31.0); MEAN CORPUSCULAR HGB CONC 32.4 g/dl (33.0-37.0); MEAN PLATELET VOLUME 10.5 fl (9.6-12.3); MONO # 0.7 10*3/uL (0.1-1.0); MONO % 6.1 % (3.0-9.0); NEUT # 6.1 10*3/uL (2.3-7.9); NEUT % 57.3 % (47.0-73.0); PLATELET COUNT AUTOMATED 223 10*3/uL (130-400); RED BLOOD COUNT 4.16 10*6/uL (4.50-5.90); RED CELL DISTRI WIDTH 14.1 % (0-14.5); WHITE BLOOD COUNT 10.6 10*3/uL (4.8-10.8)
[2023-12-22 08:42] LABS: ALKALINE PHOSPHATASE 68 U/L (46-116); BUN 7 mg/dl (9-23); CHLORIDE 107 mmol/L (98-107); FREE T4 1.08 ng/dl (0.89-1.76); POTASSIUM 3.5 mmol/L (3.4-5.1); SGPT/ALT 8 U/L (5-49); TOTAL PROTEIN 6.6 gm/dL (6.0-8.0)
== END | disposition home or self-care (01) ==
LOC: LAB 01:30
PROVIDERS: ATTEND Internal Medicine
DX: Z12.5 Encounter for screening for malignant neoplasm of prostate (principal); R63.4 Abnormal weight loss

== ENCOUNTER → 2023-12-25 | Outpatient (CLI) | payer OTHER | END | disposition home or self-care (01) | LOC: LAB 10:50 | PROVIDERS: ATTEND Internal Medicine | DX: D64.9 Anemia, unspecified (principal) ==

== ENCOUNTER → 2024-01-11 | Outpatient (CLI) | payer OTHER | END | disposition home or self-care (01) | LOC: CT 01:26 | PROVIDERS: ATTEND Internal Medicine | DX: Z12.2 Encounter for screening for malignant neoplasm of respiratory organs (principal); R91.8 Other nonspecific abnormal finding of lung field; F17.210 Nicotine dependence, cigarettes, uncomplicated ==

== ENCOUNTER 2024-06-20 14:06 | Emergency (ER) | payer OTHER ==
[~2024-06-20] VITALS: Ht 182.8 cm; Wt 86.2 kg
[~2024-06-20 14:06] MED LIST changes: +AZELASTINE137 MCG/0. NAS; +BUPROPION HYDR100 MG PO; +CHILDREN'S FLO5.9 ML INH; +SILVADENE,SSD C50 GM T
[2024-06-20] MEDS ORDERED: SODIUM CHLORIDE 0.9% 1,000 ML IV ONE (14:35)
[2024-06-20] MEDS ORDERED: Ondansetron Hydrochloride 4 MG/2 ML VIAL IV ONE (14:40)
[2024-06-20] MEDS ORDERED: Thiamine 200 MG/2 ML VIAL IV ONE (14:40)
[2024-06-20] MEDS ORDERED: diazePAM 10 MG/2 ML SYR IV ONE ×2 (14:40→16:05)
[2024-06-20] MEDS ORDERED: FAMOTIDINE 50 ML IV ONE (14:40)
[2024-06-20 15:10] LABS: BASO % 0.5 % (0.0-1.0); EOS # 0.2 10*3/uL (0.0-0.4); EOS % 2.9 % (1.0-4.0); HEMATOCRIT 42.9 % (42.0-52.0); MEAN CELL VOLUME 97.3 fl (80.0-94.0); MEAN CORPUSCULAR HGB 33.1 pg (27.0-31.0); MEAN PLATELET VOLUME 9.7 fl (9.6-12.3); MONO # 0.5 10*3/uL (0.1-1.0); MONO % 8.9 % (3.0-9.0); NEUT # 2.2 10*3/uL (2.3-7.9); NEUT % 36.7 % (47.0-73.0); PLATELET COUNT AUTOMATED 151 10*3/uL (130-400); RED BLOOD COUNT 4.41 10*6/uL (4.50-5.90); WHITE BLOOD COUNT 5.9 10*3/uL (4.8-10.8)
[2024-06-20 15:11] LABS: BILIRUBIN Negative (Negative); BLOOD Negative (Negative); CLARITY Clear (Clear); COLOR Yellow (Yellow); GLUCOSE Negative (Negative); KETONE Negative (Negative); LEUKO ESTERASE Negative (Negative); NITRITE Negative (Negative); PH 5.5 (4.5-8.0); SPECIFIC GRAVITY <= 1.005 (1.001-1.030); UROBILINOGEN 0.2 E.U./dl (0.0-1.0)
[2024-06-20 15:19] LABS: EPITHELIAL CELLS 0-2; URINE AMPHETAMINES Negative (1000ng/ml); URINE BARBITURATES Negative (200ng/ml); URINE BENZODIAZEPINES Negative (200ng/ml); URINE CANNABINOIDS (THC) Negative (50ng/ml); URINE COCAINE Negative (300ng/ml); URINE METHADONE Negative (300ng/ml); URINE OPIATES Negative (300ng/ml); URINE PHENCYCLIDINE Negative (25ng/ml)
[2024-06-20 15:22] LABS: ACT PARTIAL THROMBO TIME 29.4 SECONDS (20.0-32.1)
[2024-06-20 15:36] LABS: ALKALINE PHOSPHATASE 67 U/L (46-116); BUN 7 mg/dl (9-23); CHLORIDE 105 mmol/L (98-107); LIPASE 114 U/L (12-53); POTASSIUM 3.7 mmol/L (3.4-5.1); SGPT/ALT 63 U/L (5-49); TOTAL PROTEIN 7.9 gm/dL (6.0-8.0)
[2024-06-20 15:50] LABS: ETHYL ALCOHOL 350.2 mg/dl (<3)
== END 2024-06-20 16:28 | disposition left against medical advice (07) ==
LOC: ED 14:06
PROVIDERS: Emergency Medicine
DX: F10.129 Alcohol abuse with intoxication, unspecified (principal); R10.2 Pelvic and perineal pain; R25.9 Unspecified abnormal involuntary movements; F17.210 Nicotine dependence, cigarettes, uncomplicated; Y90.8 Blood alcohol level of 240 mg/100 ml or more; Z91.030 Bee allergy status; Z79.899 Other long term (current) drug therapy; Z98.890 Other specified postprocedural states; Z90.89 Acquired absence of other organs

== ENCOUNTER 2024-12-21 16:49 | Emergency (ER) | payer OTHER ==
[~2024-12-21] VITALS: Ht 182.8 cm
[~2024-12-21 16:49] MED LIST changes: +NATURE'S BLEND100 M2 PO
[2024-12-21 17:34] VITALS: BP 161/97
[2024-12-21] MEDS ORDERED: MAGNESIUM SULFATE 100 ML IV ONE (17:45)
[2024-12-21] MEDS ORDERED: diazePAM 5 MG TAB PO ONE (17:45)
[2024-12-21] MEDS ORDERED: FOLIC ACID 1 MG TAB PO ONE (17:45)
[2024-12-21] MEDS ORDERED: SODIUM CHLORIDE 0.9% 1,000 ML IV ONE (17:45)
[2024-12-21 17:55] LABS: BASO # 0.0 10*3/uL (0.0-0.1); BASO % 0.5 % (0.0-1.0); EOS # 0.2 10*3/uL (0.0-0.4); EOS % 2.0 % (1.0-4.0); MEAN CELL VOLUME 97.4 fl (80.0-94.0); MEAN CORPUSCULAR HGB 33.2 pg (27.0-31.0); MEAN PLATELET VOLUME 9.8 fl (9.6-12.3); MONO # 0.6 10*3/uL (0.1-1.0); MONO % 8.3 % (3.0-9.0); NEUT # 3.2 10*3/uL (2.3-7.9); NEUT % 42.1 % (47.0-73.0); NUCLEATED RED BLOOD CELL 0.0 % (0.0-0.0); NUCLEATED RED BLOOD CELL 0.0 10*3/uL (0.0-0.0); PLATELET COUNT AUTOMATED 147 10*3/uL (130-400); RED CELL DISTRI WIDTH 13.9 % (0-14.5)
[2024-12-21 18:25] LABS: BUN < 5 mg/dl (9-23)
[2024-12-22] MEDS ORDERED: MULTIVITAMIN 1 TAB TAB PO SCH (10:00)
[2024-12-29] MEDS ORDERED: ZESTRIL5 MG PO (15:01)
[2024-12-29] MEDS ORDERED: ATORVASTATIN CA20 M1 PO (15:01)
[2024-12-29] MEDS ORDERED: SYSTANE 0.3-0.1 EACH OP (15:03)
== END 2024-12-21 19:45 | disposition admitted as inpatient to this hospital (09) ==
LOC: ED 16:49 → EDHOLD 17:48
PROVIDERS: Emergency Medicine
DX: F10.239 Alcohol dependence with withdrawal, unspecified (principal); F17.210 Nicotine dependence, cigarettes, uncomplicated; Z98.890 Other specified postprocedural states; Z91.030 Bee allergy status; Y90.9 Presence of alcohol in blood, level not specified

== ENCOUNTER 2025-02-12 17:37 | Inpatient (IN) | payer OTHER ==
[~2025-02-12] VITALS: Ht 182.8 cm; Wt 90.5 kg
[~2025-02-12 17:37] MED LIST changes: +SYSTANE 0.3-0.1 EACH OP; +ZESTRIL5 MG PO
[2025-02-12 18:06] VITALS: BP 138/72
[2025-02-12] MEDS ORDERED: HEPARIN SODIUM 250 ML IV SCH (18:10)
[2025-02-12 18:22] LABS: BASO # 0.0 10*3/uL (0.0-0.1); BASO % 0.4 % (0.0-1.0); EOS # 0.0 10*3/uL (0.0-0.4); EOS % 0.6 % (1.0-4.0); MEAN CELL VOLUME 98.6 fl (80.0-94.0); MEAN CORPUSCULAR HGB 33.6 pg (27.0-31.0); MEAN PLATELET VOLUME 9.8 fl (9.6-12.3); MONO # 0.7 10*3/uL (0.1-1.0); MONO % 10.2 % (3.0-9.0); NEUT # 3.5 10*3/uL (2.3-7.9); NEUT % 50.0 % (47.0-73.0); NUCLEATED RED BLOOD CELL 0.0 % (0.0-0.0); NUCLEATED RED BLOOD CELL 0.0 10*3/uL (0.0-0.0); PLATELET COUNT AUTOMATED 162 10*3/uL (130-400); RED CELL DISTRI WIDTH 13.4 % (0-14.5)
[2025-02-12 18:45] LABS: BUN 5 mg/dl (9-23)
[2025-02-12] MEDS ORDERED: HYDROXYZINE HCL25 MG PO (18:48)
[2025-02-12] MEDS ORDERED: BUPROPION75 MG PO (18:48)
[2025-02-12] MEDS ORDERED: NATURE'S BLEND F1 MG PO (18:49)
[2025-02-12] MEDS ORDERED: NATURE'S BLEND100 M2 PO (18:49)
[2025-02-12] MEDS ORDERED: MULTIVITAMIN1 EACH PO (18:49)
[2025-02-12] MEDS ORDERED: hydrOXYzine 50 MG CAP PO PRN (21:30)
[2025-02-12] MEDS ORDERED: METHOCARBAMOL 750 MG TAB PO PRN (21:30)
[2025-02-12] MEDS ORDERED: Dicyclomine Hydrochloride 20 MG TAB PO PRN (21:30)
[2025-02-12] MEDS ORDERED: LORazepam 2 MG/ML VIAL IV PRN (21:30)
[2025-02-12] MEDS ORDERED: MAGNESIUM SULFATE 100 ML IV ONE (21:30)
[2025-02-12] MEDS ORDERED: FOLIC ACID 1 MG TAB PO ONE (21:30)
[2025-02-12] MEDS ORDERED: Water, Sterile 10 ML VIAL IV PRN (21:30)
[2025-02-12] MEDS ORDERED: LORazepam 1 MG TAB PO SCH (22:00)
[2025-02-12] MEDS ORDERED: SODIUM CHLORIDE 0.9% 1,000 ML IV SCH (23:20)
[2025-02-13] VITALS: BP 120/69
[2025-02-13 08:00] VITALS: BP 134/67
[2025-02-13 09:35] LABS: BASO # 0.0 10*3/uL (0.0-0.1); BASO % 0.7 % (0.0-1.0); EOS # 0.1 10*3/uL (0.0-0.4); EOS % 1.5 % (1.0-4.0); MEAN CELL VOLUME 97.5 fl (80.0-94.0); MEAN CORPUSCULAR HGB 33.5 pg (27.0-31.0); MEAN PLATELET VOLUME 10.3 fl (9.6-12.3); MONO # 0.6 10*3/uL (0.1-1.0); MONO % 9.2 % (3.0-9.0); NEUT # 3.2 10*3/uL (2.3-7.9); NEUT % 54.1 % (47.0-73.0); NUCLEATED RED BLOOD CELL 0.0 % (0.0-0.0); NUCLEATED RED BLOOD CELL 0.0 10*3/uL (0.0-0.0); PLATELET COUNT AUTOMATED 151 10*3/uL (130-400); RED CELL DISTRI WIDTH 13.7 % (0-14.5)
[2025-02-13 09:54] LABS: BUN 8 mg/dl (9-23)
[2025-02-13] MEDS ORDERED: MULTIVITAMIN 1 TAB TAB PO SCH (10:00)
[2025-02-13 11:45] VITALS: BP 99/66
[2025-02-13 16:00] VITALS: BP 128/48
[2025-02-13] MEDS ORDERED: SUCRALFATE 1 GM TAB PO SCH (16:30)
[2025-02-13] MEDS ORDERED: Pantoprazole Sodium 20 MG TAB PO SCH (18:00)
[2025-02-13 20:00] VITALS: BP 144/63
[2025-02-13] MEDS ORDERED: buPROPion Hydrochloride 75 MG TAB PO SCH (22:00)
[2025-02-14] VITALS: BP 146/70
[2025-02-14] MEDS ORDERED: LORazepam 1 MG TAB PO SCH
[2025-02-14 08:00] VITALS: BP 163/84
[2025-02-14] MEDS ORDERED: Thiamine 100 MG TAB PO SCH (10:00)
[2025-02-14] MEDS ORDERED: ATORVASTATIN CALCIUM 20 MG TAB PO SCH (10:00)
[2025-02-14] MEDS ORDERED: FOLIC ACID 1 MG TAB PO SCH (10:00)
[2025-02-14] MEDS ORDERED: LISINOPRIL 5 MG TAB PO SCH (10:00)
[2025-02-14 12:00] VITALS: BP 150/82
[2025-02-14] MEDS ORDERED: ELIQUIS5 M1 PO (12:12)
[2025-02-15] MEDS ORDERED: LORazepam 1 MG TAB PO PRN (02:00)
== END 2025-02-14 14:30 | disposition home or self-care (01) | DRG 134 ==
LOC: ED 17:37 → 5E 18:16 → EDHOLD 18:16 → 5E 19:37
PROVIDERS: Nurse Practitioner Family; ADMIT Internal Medicine; ATTEND Internal Medicine
DX: I26.99 Other pulmonary embolism without acute cor pulmonale (principal); K70.0 Alcoholic fatty liver; K21.9 Gastro-esophageal reflux disease without esophagitis; F10.239 Alcohol dependence with withdrawal, unspecified; I10 Essential (primary) hypertension; F17.210 Nicotine dependence, cigarettes, uncomplicated; E78.5 Hyperlipidemia, unspecified; Y90.6 Blood alcohol level of 120-199 mg/100 ml; Z91.030 Bee allergy status; Z79.899 Other long term (current) drug therapy

== ENCOUNTER 2025-02-14 22:26 | Emergency (ER) | payer OTHER ==
[~2025-02-14] VITALS: Ht 177.8 cm; Wt 90.7 kg
[~2025-02-14 22:26] MED LIST changes: +BUPROPION75 MG PO; +ELIQUIS5 M1 PO; +HYDROXYZINE HCL25 MG PO; +MULTIVITAMIN1 EACH PO
[2025-02-14 22:55] LABS: BASO # 0.0 10*3/uL (0.0-0.1); BASO % 0.4 % (0.0-1.0); EOS # 0.1 10*3/uL (0.0-0.4); EOS % 0.7 % (1.0-4.0); MEAN CELL VOLUME 99.5 fl (80.0-94.0); MEAN CORPUSCULAR HGB 32.8 pg (27.0-31.0); MEAN PLATELET VOLUME 10.3 fl (9.6-12.3); MONO # 0.6 10*3/uL (0.1-1.0); MONO % 8.1 % (3.0-9.0); NEUT # 4.1 10*3/uL (2.3-7.9); NEUT % 60.0 % (47.0-73.0); NUCLEATED RED BLOOD CELL 0.0 % (0.0-0.0); NUCLEATED RED BLOOD CELL 0.0 10*3/uL (0.0-0.0); PLATELET COUNT AUTOMATED 162 10*3/uL (130-400); RED CELL DISTRI WIDTH 13.3 % (0-14.5)
[2025-02-14 23:14] LABS: BUN 6 mg/dl (9-23); ETHYL ALCOHOL 180.8 mg/dl (<3)
== END 2025-02-15 00:05 | disposition left against medical advice (07) ==
LOC: ED 22:26
PROVIDERS: Internal Medicine
DX: S41.111A Laceration without foreign body of right upper arm, initial encounter (principal); F10.129 Alcohol abuse with intoxication, unspecified; R27.0 Ataxia, unspecified; R51.9 Headache, unspecified; F17.210 Nicotine dependence, cigarettes, uncomplicated; Z91.030 Bee allergy status; Z79.899 Other long term (current) drug therapy; Z98.890 Other specified postprocedural states; Z53.29 Procedure and treatment not carried out because of patient's decision for other reasons; W18.39XA Other fall on same level, initial encounter; Y93.89 Activity, other specified; Y92.89 Other specified places as the place of occurrence of the external cause; Y99.8 Other external cause status; Y90.8 Blood alcohol level of 240 mg/100 ml or more; Y90.6 Blood alcohol level of 120-199 mg/100 ml